=== PATIENT | male | born 1950 | race Caucasian/White ===

== ENCOUNTER 2022-02-04 10:41 | Inpatient (IN) ==
--- NOTE | 2022-02-04 11:16 | Emergency Department Note ---
Impression & Plan Suicidal ideation ED Provider Note NAME: LATOYA MENDOZA AGE: 71 SEX: M : 1950 ARRIVES VIA: Walk-In INFORMANT: [Patient][sister] ED PROVIDER(S): [Jules Marshall MD] CHIEF COMPLAINT: Mental health evaluation HISTORY OF PRESENT ILLNESS: The patient is a 71-year-old male who presents to the ED with suicidal thoughts. The patient does have some depression and anxiety. He has a learning disability. He is currently living with his granddaughter. The patient's [facility] er received a call today. He was upset and talking about ending his life. He talked about packing his bags and going into the le. He seemed to suicidal. This was a fairly sudden change as he has not demonstrated this type of behavior previously. He seemed fine the last few days. The patient states that he is not sure why he feels suicidal. He said that he thought about packing his bags and walking in the le, he thought about taking pills. As per the sister, the patient does not have any access to guns. The patient has never been hospitalized on the psychiatric services. Patient in the last several months has had some medication changes. Changes were made because of tremor. Really, the medication changes have not helped the tremor. The patient sister states that there has been weight loss over the last several months. She thinks he may be upset about another sister who is having some health issues and has been in and out of the hospital recently. REVIEW OF SYSTEMS: See HPI for pertinent positives and negatives. A total of ten systems were reviewed and were otherwise negative. PMHx/PSHx: See Below SOCIAL HISTORY: See Below. PHYSICAL EXAM: GENERAL: Patient is in no acute distress. HEENT: No acute trauma, normocephalic atraumatic, mucous membranes moist, no nasal congestion, no scleral icterus. NECK: No stridor, no adenopathy, no meningismus, trachea is midline. LUNGS: Clear to auscultation bilaterally, no wheeze, no rhonchi, breath sounds e qual. HEART: Without murmurs gallops or rubs, regular rate and rhythm. ABDOMEN: Soft, nontender, bowel sounds positive, no hernias, no peritonitis. EXTREMITIES: No cyanosis or edema, full range of motion of all the joints without pain or difficulty, no signs for acute trauma. NEUROLOGIC: Oriented x 3, no acute motor or sensory deficits, no focal weakness. SKIN: No rash, no jaundice, no diaphoresis. Psychiatric: Cooperative, flattened affect. Admits to suicidal ideation. Voluntary. DIFFERENTIAL DIAGNOSIS: Mood disorder, infection, hypoglycemia, electrolyte abnormalities, cardiac sources, intracerebral event, depression, anxiety, suicidal ideation, toxicologic etiology, trauma, neurologic event, as well as other pathologies. EMERGENCY DEPARTMENT COURSE/PROCEDURES: MEDICAL DECISION MAKING: There is no leukocytosis or concerning anemia. There is a normal platelet count. No significant electrolyte abnormality or kidney failure. No concerning liver enzyme elevation. The patient appeared to be in a euthyroid state. Urinalysis did not show infection. Aspirin, Tylenol and alcohol levels were undetectable. Urine tox showed potential barbiturates. Covid testing returned negative. On exam, the patient had a flattened affect, he was voluntary, he admitted to some suicidal ideation and a plan to potentially take pills. The patient was felt medically clear. He was seen by psychiatry case management. The patient has been admitted voluntarily to our psychiatric service, 3 S. Patient has been cooperative during his ED stay, no emergent medications were required. Past Med/Surg History Medical History Hyperlipidemia Hypertension Thyroid dysfunction Social History Smoking Status: Never smoker Preferred Language: Uzbek Communication Ability: Effective Communication Ability Comment: can sign and read his name Tare Man Required: No Beliefs That Will Affect Care: None Feels Safe at Home: Yes Assistive Devices: Denture - Upper, Denture - Lower and Glasses Allergies Allergies Allergy/AdvReac Type Severity Reaction Status Date / Time No Known Allergies Allergy Unverified 01/13/22 13:26 Home Meds Home Medications Medication Instructions Recorded Confirmed amlodipine 5 mg tablet 5 mg PO DAILY 01/13/22 02/04/22 aspirin 81 mg tablet,delayed 81 mg PO DAILY 01/13/22 02/04/22 release atenolol 50 mg tablet 50 mg PO BID 01/13/22 02/04/22 buspirone 5 mg tablet 5 mg PO BID 01/13/22 02/04/22 gabapentin 600 mg tablet 600 mg PO QID 01/13/22 02/04/22 levothyroxine 137 mcg tablet 137 mcg PO DAILYBB 01/13/22 02/04/22 lisinopril 30 mg tablet 30 mg PO DAILY 01/13/22 02/04/22 primidone 50 mg tablet 100 mg PO BID 01/13/22 02/04/22 simvastatin 20 mg tablet 20 mg PO HS 01/13/22 02/04/22 Results & Data (ED) Vital Signs Vital Signs - 24 hr 02/04/22 10:47 Temperature 36.5 C Temperature Source Temporal Artery Scan Pulse Rate 63 Pulse Rhythm Regular Pulse Strength Normal Respiratory Rate 18 Respiratory Effort / Characteristics Non-Labored Spontaneous Respiratory Depth Normal Blood Pressure 176/91 H Blood Pressure Mean 119 Blood Pressure Position Sitting Pulse Oximetry 98 Oxygen Delivery Method Room Air Sepsis Recent Fever Within 48 Hours No Sepsis New/Unexplained Change in Mental Status N/A Sepsis Action Taken by Nursing No Action Required Home Medications Current Medication List: was personally reviewed by me Laboratory Data Attestation: I reviewed the patient's lab results. Result diagrams: 02/04/22 11:35 02/04/22 11:35 Lab Results 02/04/22 02/04/22 02/04/22 Range/Units 11:30 11:30 11:30 WBC (4.8-10.8) K/uL RBC (4.7-6.1) M/uL Hgb (14.0-18.0) g/dL Hct (42-52) % MCV (80-100) fL MCH (25-34) pg MCHC (32-36) g/dL RDW Std Deviation (36.4-46.3) fL RDW Coeff of Anthony (11.5-14.5) % Plt Count (130-400) K/uL MPV (7.4-10.4) fL Immature Gran % (Auto) % Neut % (Auto) % Lymph % (Auto) % [place] % (Auto) % Eos % (Auto) % Baso % (Auto) % Neut # (Auto) (1.4-6.5) K/uL Lymph # (Auto) (1.2-3.4) K/uL [place] # (Auto) (0.11-0.59) K/uL Eos # (Auto) (0-0.5) K/uL Baso # (Auto) (0-0.2) K/uL Immature Gran # (Auto) (0.00-0.02) K/uL Sodium (136-145) mmol/L Potassium (3.5-5.1) mmol/L Chloride (98-107) mmol/L Carbon Dioxide (21-32) mmol/L Anion Gap (3-11) BUN (6-23) mg/dl Creatinine (0.6-1.4) mg/dl Est Cr Clr Drug Dosing ml/min Est GFR ( Amer) ml/min Est GFR (Non-Af Amer) ml/min BUN/Creatinine Ratio (10-20) Glucose (70-99(Fasting)) mg/dl Calcium (8.5-10.1) mg/dl Total Bilirubin (0.2-1.0) mg/dl AST (13-39) U/L ALT (7-52) U/L Alkaline Phosphatase (34-104) U/L Total Protein (6.0-8.3) gm/dl Albumin (3.4-5.0) gm/dl Globulin (2.5-4.0) gm/dl Albumin/Globulin Ratio (0.9-2) TSH (0.300-4.500) uIu/ml Urine Color Yellow Urine Appearance Clear (Clear) Urine pH 5.0 (4.5-7.5) Ur Specific [place] 1.017 (1.000-1.030) Urine Protein Negative (Negative) Urine Glucose (UA) Negative (Negative) Urine Ketones Negative (Negative) Urine Blood Trace H (Negative) Urine Nitrite Negative (Negative) Urine Bilirubin Negative (Negative) Urine Urobilinogen Negative (Negative) Ur Leukocyte Esterase Negative (Negative) Urine WBC (Auto) 0 (0-5) /hpf Urine RBC (Auto) 0-4 (0-4) /hpf U Hyaline Cast (Auto) 0 (0-5) /lpf U Epithel Cells (Auto) 0-5 (0-5) /lpf Urine Bacteria (Auto) Negative (Negative) Salicylates (3.0-30) mg/dl Urine Opiates Screen Neg (Neg) Ur Methadone, Qual Neg (Neg) Acetaminophen (10-30) ug/ml Urine Barbiturates Pos H (Neg) Ur Phencyclidine (PCP) Neg (Neg) U Amphetamin/Meth Scrn Neg (Neg) MDMA (Ecstasy) Screen Neg (Neg) U Benzodiazepines Scrn Neg (Neg) Ur Cocaine Metabolite Neg (Neg) U Marijuana (THC) Screen Neg (Neg) Ethyl Alcohol mg/dL (<10.0) mg/dl SARS-CoV-2, RNA, NAAT NEGATIVE (NEGATIVE) 02/04/22 02/04/22 02/04/22 Range/Units 11:35 11:35 11:35 WBC 6.44 (4.8-10.8) K/uL RBC 4.69 L (4.7-6.1) M/uL Hgb 16.2 (14.0-18.0) g/dL Hct 45.5 (42-52) % MCV 97.0 (80-100) fL MCH 34.5 H (25-34) pg MCHC 35.6 (32-36) g/dL RDW Std Deviation 48.4 H (36.4-46.3) fL RDW Coeff of Anthony 13.6 (11.5-14.5) % Plt Count 196 (130-400) K/uL MPV 10.8 H (7.4-10.4) fL Immature Gran % (Auto) 0.2 % Neut % (Auto) 65.5 % Lymph % (Auto) 23.3 % [place] % (Auto) 8.5 % Eos % (Auto) 2.0 % Baso % (Auto) 0.5 % Neut # (Auto) 4.22 (1.4-6.5) K/uL Lymph # (Auto) 1.50 (1.2-3.4) K/uL [place] # (Auto) 0.55 (0.11-0.59) K/uL Eos # (Auto) 0.13 (0-0.5) K/uL Baso # (Auto) 0.03 (0-0.2) K/uL Immature Gran # (Auto) 0.01 (0.00-0.02) K/uL Sodium 138 (136-145) mmol/L Potassium 4.1 (3.5-5.1) mmol/L Chloride 104 (98-107) mmol/L Carbon Dioxide 28 (21-32) mmol/L Anion Gap 6 (3-11) BUN 24 H (6-23) mg/dl Creatinine 1.12 (0.6-1.4) mg/dl Est Cr Clr Drug Dosing 73.8 ml/min Est GFR ( Amer) 76.7 ml/min Est GFR (Non-Af Amer) 66.2 ml/min BUN/Creatinine Ratio 21.4 H (10-20) Glucose 90 (70-99(Fasting)) mg/dl Calcium 9.2 (8.5-10.1) mg/dl Total Bilirubin 0.7 (0.2-1.0) mg/dl AST 19 (13-39) U/L ALT 16 (7-52) U/L Alkaline Phosphatase 48 (34-104) U/L Total Protein 6.5 (6.0-8.3) gm/dl Albumin 4.1 (3.4-5.0) gm/dl Globulin 2.4 L (2.5-4.0) gm/dl Albumin/Globulin Ratio 1.7 (0.9-2) TSH 1.366 (0.300-4.500) uIu/ml Urine Color Urine Appearance (Clear) Urine pH (4.5-7.5) Ur Specific [place] (1.000-1.030) Urine Protein (Negative) Urine Glucose (UA) (Negative) Urine Ketones (Negative) Urine Blood (Negative) Urine Nitrite (Negative) Urine Bilirubin (Negative) Urine Urobilinogen (Negative) Ur Leukocyte Esterase (Negative) Urine WBC (Auto) (0-5) /hpf Urine RBC (Auto) (0-4) /hpf U Hyaline Cast (Auto) (0-5) /lpf U Epithel Cells (Auto) (0-5) /lpf Urine Bacteria (Auto) (Negative) Salicylates (3.0-30) mg/dl Urine Opiates Screen (Neg) Ur Methadone, Qual (Neg) Acetaminophen (10-30) ug/ml Urine Barbiturates (Neg) Ur Phencyclidine (PCP) (Neg) U Amphetamin/Meth Scrn (Neg) MDMA (Ecstasy) Screen (Neg) U Benzodiazepines Scrn (Neg) Ur Cocaine Metabolite (Neg) U Marijuana (THC) Screen (Neg) Ethyl Alcohol mg/dL (<10.0) mg/dl SARS-CoV-2, RNA, NAAT (NEGATIVE) 02/04/22 02/04/22 Range/Units 11:35 11:35 WBC (4.8-10.8) K/uL RBC (4.7-6.1) M/uL Hgb (14.0-18.0) g/dL Hct (42-52) % MCV (80-100) fL MCH (25-34) pg MCHC (32-36) g/dL RDW Std Deviation (36.4-46.3) fL RDW Coeff of Anthony (11.5-14.5) % Plt Count (130-400) K/uL MPV (7.4-10.4) fL Immature Gran % (Auto) % Neut % (Auto) % Lymph % (Auto) % [place] % (Auto) % Eos % (Auto) % Baso % (Auto) % Neut # (Auto) (1.4-6.5) K/uL Lymph # (Auto) (1.2-3.4) K/uL [place] # (Auto) (0.11-0.59) K/uL Eos # (Auto) (0-0.5) K/uL Baso # (Auto) (0-0.2) K/uL Immature Gran # (Auto) (0.00-0.02) K/uL Sodium (136-145) mmol/L Potassium (3.5-5.1) mmol/L Chloride (98-107) mmol/L Carbon Dioxide (21-32) mmol/L Anion Gap (3-11) BUN (6-23) mg/dl Creatinine (0.6-1.4) mg/dl Est Cr Clr Drug Dosing ml/min Est GFR ( Amer) ml/min Est GFR (Non-Af Amer) ml/min BUN/Creatinine Ratio (10-20) Glucose (70-99(Fasting)) mg/dl Calcium (8.5-10.1) mg/dl Total Bilirubin (0.2-1.0) mg/dl AST (13-39) U/L ALT (7-52) U/L Alkaline Phosphatase (34-104) U/L Total Protein (6.0-8.3) gm/dl Albumin (3.4-5.0) gm/dl Globulin (2.5-4.0) gm/dl Albumin/Globulin Ratio (0.9-2) TSH (0.300-4.500) uIu/ml Urine Color Urine Appearance (Clear) Urine pH (4.5-7.5) Ur Specific [place] (1.000-1.030) Urine Protein (Negative) Urine Glucose (UA) (Negative) Urine Ketones (Negative) Urine Blood (Negative) Urine Nitrite (Negative) Urine Bilirubin (Negative) Urine Urobilinogen (Negative) Ur Leukocyte Esterase (Negative) Urine WBC (Auto) (0-5) /hpf Urine RBC (Auto) (0-4) /hpf U Hyaline Cast (Auto) (0-5) /lpf U Epithel Cells (Auto) (0-5) /lpf Urine Bacteria (Auto) (Negative) Salicylates < 3.0 L (3.0-30) mg/dl Urine Opiates Screen (Neg) Ur Methadone, Qual (Neg) Acetaminophen < 3 L (10-30) ug/ml Urine Barbiturates (Neg) Ur Phencyclidine (PCP) (Neg) U Amphetamin/Meth Scrn (Neg) MDMA (Ecstasy) Screen (Neg) U Benzodiazepines Scrn (Neg) Ur Cocaine Metabolite (Neg) U Marijuana (THC) Screen (Neg) Ethyl Alcohol mg/dL < 10.0 (<10.0) mg/dl SARS-CoV-2, RNA, NAAT (NEGATIVE) Administered Medications Atenolol (Atenolol 50 Mg Tablet) 50 mg PO [id number] [facility] Stop: 03/06/22 17:59 Last Admin: 02/04/22 18:16 Dose: 50 mg Documented by: [id number] Buspirone HCl (Buspirone 5 Mg Tab) 5 mg PO [id number] [facility] Stop: 03/06/22 17:59 Last Admin: 02/04/22 18:16 Dose: 5 mg Documented by: [id number] Gabapentin (Gabapentin 600 Mg Tab) 600 mg PO QID [facility] Stop: 03/06/22 17:59 Last Admin: 02/04/22 18:16 Dose: 600 mg Documented by: [id number] Discharge Plan Visit Data Chief Complaint: Mental Health Evaluation Stated Complaint: MHID, SUICIDAL THOUGHTS ED Provider: Jules Marshall Discharge Problem: Suicidal ideation Patient Disposition: Admitted As Inpatient Condition: Good Discharge Instructions Interventions: ED Discharge Assessment Last Done: 02/04/22 17:00
[2022-02-04 11:47] LABS: Basophils # (auto) 0.03 K/uL (0-0.2); Basophils % (auto) 0.5 %; Eosinophils # (auto) 0.13 K/uL (0-0.5); Hematocrit (blood only) 45.5 % (42-52); Hemoglobin 16.2 g/dL (14.0-18.0); Immature Granulocytes # (auto) 0.01 K/uL (0.00-0.02); Immature Granulocytes % (auto) 0.2 %; Lymphocytes % (auto) 23.3 %; Mean Corpuscular Hemoglobin 34.5 pg (25-34); Mean Corpuscular Hgb Conc 35.6 g/dL (32-36); Mean Platelet Volume 10.8 fL (7.4-10.4); Monocytes # (auto) 0.55 K/uL (0.11-0.59); Monocytes % (auto) 8.5 %; Neutrophils # (auto) 4.22 K/uL (1.4-6.5); Neutrophils % (auto) 65.5 %; Platelet Count 196 K/uL (130-400); RDW Coefficient of Variation 13.6 % (11.5-14.5); RDW Standard Deviation 48.4 fL (36.4-46.3); Red Blood Count 4.69 M/uL (4.7-6.1); White Blood Count 6.44 K/uL (4.8-10.8)
[2022-02-04 12:03] LABS: Appearance Urine Clear (Clear); Bacteria Urine Automated Negative (Negative); Bilirubin Urine Negative (Negative); Blood Urine Trace (Negative); Cast Urine Automated 0 /lpf (0-5); Color Urine Yellow; Epithelial Cell Urine Auto 0-5 /lpf (0-5); Glucose Urine UA Negative (Negative); Ketones Urine Negative (Negative); Leukocyte Esterase Urine Negative (Negative); Nitrite Urine Negative (Negative); Protein Urine Negative (Negative); RBC Urine Automated 0-4 /hpf (0-4); Specific Gravity Urine 1.017 (1.000-1.030); Urobilinogen Urine Negative (Negative); WBC Urine Automated 0 /hpf (0-5)
[2022-02-04 12:13] LABS: Albumin Globulin Ratio 1.7 (0.9-2); Albumin Level 4.1 gm/dl (3.4-5.0); BUN Creatinine Ratio 21.4 (10-20); Bilirubin,Total 0.7 mg/dl (0.2-1.0); Calcium 9.2 mg/dl (8.5-10.1); Creatinine Clr Calc Pharmacy 73.8 ml/min; Est GFR (African American) 76.7 ml/min; Est GFR (Non-African American) 66.2 ml/min; Globulin 2.4 gm/dl (2.5-4.0); Potassium 4.1 mmol/L (3.5-5.1); Total Protein 6.5 gm/dl (6.0-8.3)
[2022-02-04 12:31] LABS: Amphetamines+Metham, Urine Neg (Neg); Barbiturates, Urine Pos (Neg); Benzodiazepine, Urine Neg (Neg); Cocaine, Urine Neg (Neg); MDMA (Ecstacy), Urine Neg (Neg); Methadone, Urine Neg (Neg); Opiate, Urine Neg (Neg); Phencyclidine, Urine Neg (Neg)
[2022-02-04 13:46] LABS: Acetaminophen < 3 ug/ml (10-30); Salicylate < 3.0 mg/dl (3.0-30)
[2022-02-04] MEDS ORDERED: MAGNESIUM HYDROXIDE SUSP 30 ML UDC PO PRN (16:31)
[2022-02-04] MEDS ORDERED: hydrOXYzine HCl 25 MG TAB PO PRN ×2 (16:31)
[2022-02-04] MEDS ORDERED: SODIUM CHLORIDE 0.65% NA SOLN 45 ML (OCEAN) PRN (16:31)
[2022-02-04] MEDS ORDERED: ACETAMINOPHEN 325 MG TAB PO PRN (16:31)
[2022-02-04] MEDS ORDERED: BISMUTH SUBSALICYLATE LIQD 236 ML PO PRN (16:31)
[2022-02-04] MEDS ORDERED: ALUMINUM/MAGNESIUM SUSP 30 ML UDC PO PRN (16:31)
[2022-02-04] MEDS: GABAPENTIN 600 MG TAB PO SCH ×2 (18:16→21:56)
[2022-02-04] MEDS: busPIRone 5 MG TAB PO SCH (18:16)
[2022-02-04] MEDS: ATENOLOL 50 MG TABLET PO SCH (18:16)
[2022-02-04] MEDS ORDERED: SIMVASTATIN 20 MG TAB PO SCH (21:00)
[2022-02-04] MEDS: PRIMIDONE 50 MG TAB PO SCH (21:57)
[2022-02-04] MEDS ORDERED: amLODIPine BESYLATE 5 MG TAB PO SCH (22:00)
[2022-02-05] MEDS ORDERED: PNEUMOCOCCAL POLYSACCHARIDES 25 MCG/0.5 ML VIAL/SYR IM ONE (05:30)
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
[2022-02-05] MEDS ORDERED: LEVOTHYROXINE SODIUM 137 MCG TABLET PO SCH (08:00)
[2022-02-05] MEDS ORDERED: lisinopril 10 MG TAB PO SCH (09:00)
[2022-02-05] MEDS: GABAPENTIN 600 MG TAB PO SCH ×4 (09:00→21:02)
[2022-02-05] MEDS: busPIRone 5 MG TAB PO SCH ×2 (09:00→21:01)
[2022-02-05] MEDS: ATENOLOL 50 MG TABLET PO SCH ×2 (09:00→21:01)
[2022-02-05] MEDS: PRIMIDONE 50 MG TAB PO SCH ×2 (09:01→21:02)
[2022-02-05] MEDS: MIRTAZAPINE TAB 15 MG TAB PO SCH (21:03)
[2022-02-05] MEDS: SIMVASTATIN 20 MG TAB PO SCH (21:04)
[2022-02-06] MEDS: LEVOTHYROXINE SODIUM 137 MCG TABLET PO SCH (07:34)
[2022-02-06] MEDS: lisinopril 10 MG TAB PO SCH (08:54)
[2022-02-06] MEDS: busPIRone 5 MG TAB PO SCH ×2 (08:54→21:13)
[2022-02-06] MEDS: ATENOLOL 50 MG TABLET PO SCH ×2 (08:56→21:19)
[2022-02-06] MEDS: ASPIRIN 81 MG ECTAB PO SCH (08:56)
[2022-02-06] MEDS: amLODIPine BESYLATE 5 MG TAB PO SCH (08:56)
[2022-02-06] MEDS: PRIMIDONE 50 MG TAB PO SCH ×2 (08:57→21:13)
[2022-02-06] MEDS: GABAPENTIN 600 MG TAB PO SCH ×4 (08:57→21:13)
[2022-02-06] MEDS ORDERED: amLODIPine BESYLATE 5 MG TAB PO SCH (09:00)
--- NOTE | 2022-02-06 09:05 | Psychiatric Progress Note ---
Date of Service February 06, 2022 Impression / Recommendations Impression 71 year old with a history of intellectual and developmental disability, anxiety, depression and hypothyroidism who was admitted for worsening depression and SI with plan to overdose. Diagnostically consistent with MDD and KAMLESH with panic attacks. The patient is deemed unstable and requires psychiatric hospitalization for diagnostic clarification, safety and stabilization, medication management and development of further coping skills. MNPR due to intellectual disability with poor boundaries with peers. 02/06/22: Some improvement in mood today in context of therapeutic milieu engagement. Some dizziness from mirtazapine so will continue to monitor closely, will continue at current dose for now. Still hypertensive this morning even with increase in amlodipine, will continue to monitor. Family updated by social work. (1) Suicidal ideation: (2) MDD (major depressive disorder), recurrent episode, moderate: (3) Generalized anxiety disorder with panic attacks: (4) Intellectual disability: (5) Developmental disability: (6) Thyroid dysfunction: (7) Hypertension: 02/06/22: Continue mirtazapine and other prior to admission medications. 02/05/22: The patient was admitted to the [facility] ([facility] mental health unit) on q15 min checks (behavioral with suicide precautions) for safety. The patient will participate in group, recreational, and milieu therapies and will be offered additional individual and family sessions as clinically appropriate. -start mirtazapine 7.5mg qhs -will increase amlodipine to 10mg hs given ongoing HTN -collaborate with family Inventory Assets Strengths: supportive family, motivated to feel better, caring Needs: additional coping skills, safety plan, medication adjustments Risk Factors Assessment Male: Yes : Yes Do You Have Access To A Gun?: No Health Problems: Yes Mental Health Diagnoses: Yes Substance Use Disorders: No Previous Attempt: No Family History of Suicide: No Previous Psychiatric Hospitalization: No Hopelessness: Yes Smoker: No Protective Factors Assessment Employed: No Stable Relationships: Yes Supportive Family: Yes Interval History Identifying Information LATOYA MENDOZA is a 71-year-old man who currently lives with his niece near [place], has a history of developmental and intellectual disability, depression, and anxiety and was admitted on 02/04/22 16:31 on a 201 voluntary commitment for worsening depression and SI with plan of overdosing in the le. Chief Complaint "I'm good". Review of Systems Sleep Information Total Hours of Sleep: 7.25 Meal Information Percent Meal Consumed - Breakfast: 100 Percent Meal Consumed - Lunch: 100 Percent Meal Consumed - Dinner: 100 Subjective Subjective Patient was seen & assessed and interval progress reviewed with treatment team nursing and social work. Attended groups yesterday and talkative/tangential but appropriate. Attended to hygiene. Slept well last night. Today reports some improvement in his mood which he attributes to talking with people, talking on the phone with his niece "Pattie called which makes me happy" and doing word pu zzles. He feels the mirtazapine helped him with sleep, he felt slightly dizzy on awakening and we reviewed importance of going from lying to sitting for about 1 minute before standing. Denies any falls/feelings of syncope. He would like to continue the medication. Expresses gratitude for care he is receiving. Physical Exam Psychiatric Orientation: alert and oriented x 3 Apperance: appropriately dressed and appropriately groomed Eye Contact: good eye contact Motor Behavior: + tremor (resting tremor) Speech: normal rate/rhythm/volume of speech Affect: + constricted affect Mood: + depressed mood Thought Process: goal directed thought process and + concrete thought process Thought Content: reality based without delusions Suicidal Thoughts: denies suicidal thoughts Homicidal Thoughts: denies homicidal thoughts Hallucinations: no auditory hallucinations and no visual hallucinations Cognition: recent memory grossly intact, remote memory grossly intact, attention grossly intact and language grossly intact Estimated Intelligence: + below average estimated intelligence Insight: + limited insight Judgement: + limited judgement Vital Signs (Past 24 Hours) Last Vital Signs Temp 36.5 C 02/06/22 06:00 Pulse 60 02/06/22 08:50 Resp 18 02/06/22 06:00 BP 171/94 H 02/06/22 06:55 Pulse Ox 98 02/04/22 17:19 Results & Data ([facility]) Current Inpatient Medications Current Inpatient Medications: Current Inpatient Medications Acetaminophen (Acetaminophen 325 Mg Tab) 650 mg PO Q4H PRN PRN Reason: Headache or Minor Fever Stop: 03/06/22 16:30 Al Hydrox/Mg Hydrox/Simethicone (Aluminum/Magnesium Susp 30 Ml Udc) 30 ml PO Q4H PRN PRN Reason: GI Upset Stop: 03/06/22 16:30 Amlodipine Besylate (Amlodipine Besylate 5 Mg Tab) 10 mg PO DAILY ESMER Stop: 03/08/22 08:59 Last Admin: 02/06/22 08:56 Dose: 10 mg Documented by: Aspirin (Aspirin 81 Mg Ectab) 81 mg PO DAILY ESMER Stop: 03/08/22 08:59 Last Admin: 02/06/22 08:56 Dose: 81 mg Documented by: Atenolol (Atenolol 50 Mg Tablet) 50 mg PO BID ESMER Stop: 03/07/22 20:59 Last Admin: 02/06/22 08:56 Dose: 50 mg Documented by: Bismuth Subsalicylate (Bismuth Subsalicylate Liqd 236 Ml) 15 ml PO PRN PRN PRN Reason: Loose Stool Stop: 03/06/22 16:30 Buspirone HCl (Buspirone 5 Mg Tab) 5 mg PO BID ESMER Stop: 03/07/22 20:59 Last Admin: 02/06/22 08:54 Dose: 5 mg Documented by: Gabapentin (Gabapentin 600 Mg Tab) 600 mg PO QID [facility] Stop: 03/07/22 16:59 Last Admin: 02/06/22 08:57 Dose: 600 mg Documented by: Hydroxyzine HCl (Hydroxyzine Hcl 25 Mg Tab) 50 mg PO HSZ PRN PRN Reason: Insomnia Stop: 03/06/22 16:30 Hydroxyzine HCl (Hydroxyzine Hcl 25 Mg Tab) 25 mg PO Q4H PRN PRN Reason: Anxiety Stop: 03/06/22 16:30 Levothyroxine Sodium (Levothyroxine Sodium 137 Mcg Tablet) 137 mcg PO DAILYBB ESMER Stop: 03/08/22 07:59 Last Admin: 02/06/22 07:34 Dose: 137 mcg Documented by: Lisinopril (Lisinopril 10 Mg Tab) 30 mg PO DAILY ESMER Stop: 03/08/22 08:59 Last Admin: 02/06/22 08:54 Dose: 30 mg Documented by: Magnesium Hydroxide (Magnesium Hydroxide Susp 30 Ml Udc) 30 ml PO DAILY PRN PRN Reason: Constipation Stop: 03/06/22 16:30 Mirtazapine (Mirtazapine Tab 15 Mg Tab) 7.5 mg PO HS ESMER Stop: 03/07/22 21:59 Last Admin: 02/05/22 21:03 Dose: 7.5 mg Documented by: Primidone (Primidone 50 Mg Tab) 100 mg PO BID ESMER Stop: 03/07/22 20:59 Last Admin: 02/06/22 08:57 Dose: 100 mg Documented by: Simvastatin (Simvastatin 20 Mg Tab) 20 mg PO HS ESMER Stop: 03/07/22 21:59 Last Admin: 02/05/22 21:04 Dose: 20 mg Documented by: Sodium Chloride (Sodium Chloride 0.65% Na Soln 45 Ml ([place])) 1 - 2 sprays NA PRN PRN PRN Reason: Nasal Dryness/Congestion Stop: 03/06/22 16:30 Post Discharge Appointments Primary Care Physician Name Of Family Doctor: Dr. Jose Wellington
[2022-02-06 15:32] LABS: Amobarbital, Urine Conf NEGATIVE ng/mL (<100); Butalbital, Urine NEGATIVE ng/mL (<100); Pentobarbital, Urine Conf NEGATIVE ng/mL (<100); Phenobarbital, Urine 3220 ng/mL (<100); Secobarbital, Urine Conf NEGATIVE ng/mL (<100)
[2022-02-06] MEDS: SIMVASTATIN 20 MG TAB PO SCH (21:10)
[2022-02-06] MEDS: MIRTAZAPINE TAB 15 MG TAB PO SCH (21:10)
[2022-02-07] MEDS: LEVOTHYROXINE SODIUM 137 MCG TABLET PO SCH (07:17)
--- NOTE | 2022-02-07 09:09 | Psychiatric Progress Note ---
Date of Service February 07, 2022 Impression / Recommendations Impression 71 year old with a history of intellectual and developmental disability, anxiety, depression and hypothyroidism who was admitted for worsening depression and SI with plan to overdose. Diagnostically consistent with MDD and KAMLESH with panic attacks. The patient is deemed unstable and requires psychiatric hospitalization for diagnostic clarification, safety and stabilization, medication management and development of further coping skills. MNPR due to intellectual disability with poor boundaries with peers. 02/07/22: Steady improvement with ongoing mood improvement and no SI in context of therapeutic milieu engagement. Ongoing dizziness from mirtazapine including into mid-morning even with low dose mirtazapine so will discontinue given improvement in mood with coping skills/milieu and risk of falls with dizziness especially with his older age which he consents to. Consideration for SSRI but he prefers to avoid any additional medications. Hypertension improving since amlodipine increase. (1) Suicidal ideation: (2) MDD (major depressive disorder), recurrent episode, moderate: (3) Generalized anxiety disorder with panic attacks: (4) Intellectual disability: (5) Developmental disability: (6) Thyroid dysfunction: (7) Hypertension: 02/07/22: Discontinue mirtazapine given ongoing dizziness and risk this could lead to future falls. Continue prior to admission medications. Needs family meeting. Reviewed coping skills. 02/06/22: Continue mirtazapine and other prior to admission medications. 02/05/22: The patient was admitted to the [facility] ([facility] mental health unit) on q15 min checks (behavioral with suicide precautions) for safety. The patient will participate in group, recreational, and milieu therapies and will be offered additional individual and family sessions as clinically appropriate. -start mirtazapine 7.5mg qhs -will increase amlodipine to 10mg hs given ongoing HTN -collaborate with family Inventory Assets Strengths: supportive family, motivated to feel better, caring Needs: additional coping skills, safety plan, medication adjustments Risk Factors Assessment Male: Yes : Yes Do You Have Access To A Gun?: No Health Problems: Yes Mental Health Diagnoses: Yes Substance Use Disorders: No Previous Attempt: No Family History of Suicide: No Previous Psychiatric Hospitalization: No Hopelessness: Yes Smoker: No Protective Factors Assessment Employed: No Stable Relationships: Yes Supportive Family: Yes Interval History Identifying Information LATOYA MENDOZA is a 71-year-old man who currently lives with his niece near [facility], has a history of developmental and intellectual disability, depression, and anxiety and was admitted on 02/04/22 16:31 on a 201 voluntary commitment for worsening depression and SI with plan of overdosing in the le. Chief Complaint "I'm feeling better today". Review of Systems Sleep Information Total Hours of Sleep: 8 Meal Information Percent Meal Consumed - Breakfast: 100 Percent Meal Consumed - Lunch: 100 Percent Meal Consumed - Dinner: 100 Subjective Subjective Patient was seen & assessed and interval progress reviewed with treatment team nursing and social work. He states his mood is improving and denies SI. Still some dizziness from the mirtazapine with changing positions and this morning felt dizzy on awakening on way to bathroom and had to grab onto the wall to steady himself. Reviewed potential risks of ongoing dizziness with low dose mirtazapine including risk of falls and Latoya would prefer to stop the medication. Discussed options for alternative medications for mood such as SSRIs but he would rather not start a new medication. He's feeling that he may be read y to return home soon. Reviewed goal of ensuring dizziness improves before outpatient level of care would be felt to be safe which he agrees with. Physical Exam Psychiatric Orientation: alert and oriented x 3 Apperance: appropriately dressed and appropriately groomed Eye Contact: good eye contact Motor Behavior: + tremor (resting tremor) Speech: normal rate/rhythm/volume of speech Affect: + constricted affect Mood: no depressed mood and no anxious mood Thought Process: goal directed thought process and + concrete thought process Thought Content: reality based without delusions Suicidal Thoughts: denies suicidal thoughts Homicidal Thoughts: denies homicidal thoughts Hallucinations: no auditory hallucinations and no visual hallucinations Cognition: recent memory grossly intact, remote memory grossly intact, attention grossly intact and language grossly intact Estimated Intelligence: + below average estimated intelligence Insight: + limited insight Judgement: + limited judgement Vital Signs (Past 24 Hours) Last Vital Signs Temp 36.5 C 02/07/22 06:00 Pulse 57 L 02/07/22 06:19 Resp 16 02/07/22 06:00 BP 151/76 H 02/07/22 06:19 Pulse Ox 98 02/04/22 17:19 Results & Data ([facility]) Laboratory Results Laboratory Results - last 24 hr 02/04/22 11:30 Urine Butalbital NEGATIVE Urine Amobarbital NEGATIVE Urine Pentobarbital NEGATIVE Urine Phenobarbital 3220 H Urine Secobarbital NEGATIVE Drug Screen Comment SEE NOTE Current Inpatient Medications Current Inpatient Medications: Current Inpatient Medications Acetaminophen (Acetaminophen 325 Mg Tab) 650 mg PO Q4H PRN PRN Reason: Headache or Minor Fever Stop: 03/06/22 16:30 Al Hydrox/Mg Hydrox/Simethicone (Aluminum/Magnesium Susp 30 Ml Udc) 30 ml PO Q4H PRN PRN Reason: GI Upset Stop: 03/06/22 16:30 Amlodipine Besylate (Amlodipine Besylate 5 Mg Tab) 10 mg PO DAILY ESMER Stop: 03/08/22 08:59 Last Admin: 02/06/22 08:56 Dose: 10 mg Documented by: Aspirin (Aspirin 81 Mg Ectab) 81 mg PO DAILY ESMER Stop: 03/08/22 08:59 Last Admin: 02/06/22 08:56 Dose: 81 mg Documented by: Atenolol (Atenolol 50 Mg Tablet) 50 mg PO BID ESMER Stop: 03/07/22 20:59 Last Admin: 02/06/22 21:19 Dose: Not Given Documented by: Bismuth Subsalicylate (Bismuth Subsalicylate Liqd 236 Ml) 15 ml PO PRN PRN PRN Reason: Loose Stool Stop: 03/06/22 16:30 Buspirone HCl (Buspirone 5 Mg Tab) 5 mg PO BID ESMER Stop: 03/07/22 20:59 Last Admin: 02/06/22 21:13 Dose: 5 mg Documented by: Gabapentin (Gabapentin 600 Mg Tab) 600 mg PO QID ESMER Stop: 03/07/22 16:59 Last Admin: 02/06/22 21:13 Dose: 600 mg Documented by: Hydroxyzine HCl (Hydroxyzine Hcl 25 Mg Tab) 50 mg PO HSZ PRN PRN Reason: Insomnia Stop: 03/06/22 16:30 Hydroxyzine HCl (Hydroxyzine Hcl 25 Mg Tab) 25 mg PO Q4H PRN PRN Reason: Anxiety Stop: 03/06/22 16:30 Levothyroxine Sodium (Levothyroxine Sodium 137 Mcg Tablet) 137 mcg PO DAILYBB ESMER Stop: 03/08/22 07:59 Last Admin: 02/07/22 07:17 Dose: 137 mcg Documented by: Lisinopril (Lisinopril 10 Mg Tab) 30 mg PO DAILY ESMER Stop: 03/08/22 08:59 Last Admin: 02/06/22 08:54 Dose: 30 mg Documented by: Magnesium Hydroxide (Magnesium Hydroxide Susp 30 Ml Udc) 30 ml PO DAILY PRN PRN Reason: Constipation Stop: 03/06/22 16:30 Mirtazapine (Mirtazapine Tab 15 Mg Tab) 7.5 mg PO HS ESMER Stop: 03/07/22 21:59 Last Admin: 02/06/22 21:10 Dose: 7.5 mg Documented by: Primidone (Primidone 50 Mg Tab) 100 mg PO BID ESMER Stop: 03/07/22 20:59 Last Admin: 02/06/22 21:13 Dose: 100 mg Documented by: Simvastatin (Simvastatin 20 Mg Tab) 20 mg PO HS ESMER Stop: 03/07/22 21:59 Last Admin: 02/06/22 21:10 Dose: 20 mg Documented by: Sodium Chloride (Sodium Chloride 0.65% Na Soln 45 Ml ([place])) 1 - 2 sprays NA PRN PRN PRN Reason: Nasal Dryness/Congestion Stop: 03/06/22 16:30 Mental Health & Subst Abuse Tx Psychiatrist Name of Psychiatrist: N/A Therapist Name of Therapist: N/A Post Discharge Appointments Primary Care Physician Name Of Family Doctor: Michele [facility] Date of Appointment with PCP: 02/20/22 Time of Appointment with PCP: 3pm Provider Appointment Comment: [place] [address] Contact Information Discharge /[phone] Discharge [address]: [address] [place] [address] MICHELLE Simons [address]
[2022-02-07] MEDS: amLODIPine BESYLATE 5 MG TAB PO SCH (09:49)
[2022-02-07] MEDS: busPIRone 5 MG TAB PO SCH ×2 (09:49→21:48)
[2022-02-07] MEDS: GABAPENTIN 600 MG TAB PO SCH ×4 (09:49→21:48)
[2022-02-07] MEDS: ASPIRIN 81 MG ECTAB PO SCH (09:49)
[2022-02-07] MEDS: ATENOLOL 50 MG TABLET PO SCH ×2 (09:49→21:48)
[2022-02-07] MEDS: lisinopril 10 MG TAB PO SCH (09:50)
[2022-02-07] MEDS: PRIMIDONE 50 MG TAB PO SCH ×2 (09:50→21:48)
[2022-02-07] MEDS: SIMVASTATIN 20 MG TAB PO SCH (21:48)
[2022-02-08] MEDS: LEVOTHYROXINE SODIUM 137 MCG TABLET PO SCH (07:28)
[2022-02-08] MEDS: busPIRone 5 MG TAB PO SCH (08:55)
[2022-02-08] MEDS: ASPIRIN 81 MG ECTAB PO SCH (08:55)
[2022-02-08] MEDS: amLODIPine BESYLATE 5 MG TAB PO SCH (08:56)
[2022-02-08] MEDS: lisinopril 10 MG TAB PO SCH (08:57)
[2022-02-08] MEDS: PRIMIDONE 50 MG TAB PO SCH (08:57)
[2022-02-08] MEDS: GABAPENTIN 600 MG TAB PO SCH ×2 (08:57→12:15)
[2022-02-08] MEDS: ATENOLOL 50 MG TABLET PO SCH (08:57)
--- NOTE | 2022-02-08 10:26 | Discharge Summary ---
Date of Service February 08, 2022 History of Present Illness As per Dr. Wilder on admission: Cory presents for admission for worsening depression and SI with plan of going into the le and overdosing on medication int he context of recent stressors including his sister having health issues/being hospitalized, thyroid medication adjustments and changes in routine. Cory typically lives with his sister, Jeni, but recently has been living with his niece as he helps out around the house but she has been visiting her boyfriend some weekends and he's alone in the home which causes him to feel more lonely and depressed. Cory has a developmental and intellectual disability with inability to read or write with multiple local family supports. Therefore some of the history is taken from ED providers discussion with his sister, Jeni, who brought him to the ED after fairly sudden onset of SI with plan yesterday. He has been experiencing depressive and anxiety symptoms over the last 3-4 months including decreased appetite with weight loss (~17 lbs in the last month), tearfulness, low energy, anhedonia, increased sleep but with multiple awakenings over night due to having to use the bathroom, low energy and SI. He also endorses anxiety with panic attacks, every few days. Sometimes when alone he thinks he hears people talking or thinks he sees something outside when he's lonely or nervous. Psychiatric ROS notable for no hx saman, no hx eating disorders, no hx OCD, no hx violence, no hx substance use, no hx self-harm. He is currently prescribed busprione 5mg BID and gabapentin 600mg QID. Recent Synthroid adjustments and other medication changes due to tremor. Physical Exam Psychiatric See admission H&P and DOD assessment. Vital Signs (Past 24 Hours) Last Vital Signs Temp 36.6 C 02/08/22 06:51 Pulse 65 02/08/22 06:52 Resp 18 02/08/22 06:51 BP 141/81 H 02/08/22 06:52 Pulse Ox 98 02/04/22 17:19 Principal Diagnosis major depressive disorder Psychiatric Data See daily stay summary. In short, safety was maintained and the patient was cooperative with care. Medication changes included a trial of Remeron but he was unable to tolerate due to dizziness. A family session was held and safety plan was completed prior to discharge. Note: His BP improved with increase in Norvasc. His family expressed concerns about ongoing use of primodine for tremor and defer dosing to outpatient provider. Day of Discharge Assessment Today the patient voices readiness for discharge. They note improvement in mood and deny thoughts to harm self or others. Thoughts remain organized and they are improved from admission. There is no evidence of psychosis. They agree to take mediations as prescribed and keep follow-up appointments. They are stable for discharge to outpatient level of care. Transition of Care Transition Of Care Record: was reviewed with the patient Advance Directives Advance Directives Information Provided: Yes Advance Directives: No Mental Health Advance Directive: No Advance Directives on File: No Living Will: No Power of Ironworker Apprentice: No Advance Directives Reason:: Declines as Mental Health Visit. Risk Factors Assessment Male: Yes : Yes Do You Have Access To A Gun?: No Health Problems: Yes Mental Health Diagnoses: Yes Substance Use Disorders: No Previous Attempt: No Family History of Suicide: No Previous Psychiatric Hospitalization: No Hopelessness: Yes Smoker: No Protective Factors Assessment Employed: No Stable Relationships: Yes Supportive Family: Yes Tobacco Cessation at Discharge Tobacco Cessation Medication Prescribed at Discharge: Not Applicable/Non-Smoker Total Time Total Time Spent: Greater Than 30 Minutes Total Time Includes: Examination of the patient, Discharge Planning and Medication Reconciliation Discharge Data Lab Results 02/04/22 02/04/22 02/04/22 11:30 11:30 11:30 WBC RBC Hgb Hct MCV MCH MCHC RDW Std Deviation RDW Coeff of Anthony Plt Count MPV Immature Gran % (Auto) Neut % (Auto) Lymph % (Auto) [place] % (Auto) Eos % (Auto) Baso % (Auto) Neut # (Auto) Lymph # (Auto) [place] # (Auto) Eos # (Auto) Baso # (Auto) Immature Gran # (Auto) Sodium Potassium Chloride Carbon Dioxide Anion Gap BUN Creatinine Est Cr Clr Drug Dosing Est GFR ( Amer) Est GFR (Non-Af Amer) BUN/Creatinine Ratio Glucose Calcium Total Bilirubin AST ALT Alkaline Phosphatase Total Protein Albumin Globulin Albumin/Globulin Ratio TSH Urine Color Yellow Urine Appearance Clear Urine pH 5.0 Ur Specific Novelty 1.017 Urine Protein Negative Urine Glucose (UA) Negative Urine Ketones Negative Urine Blood Trace H Urine Nitrite Negative Urine Bilirubin Negative Urine Urobilinogen Negative Ur Leukocyte Esterase Negative Urine WBC (Auto) 0 Urine RBC (Auto) 0-4 U Hyaline Cast (Auto) 0 U Epithel Cells (Auto) 0-5 Urine Bacteria (Auto) Negative Urine Butalbital Salicylates Urine Opiates Screen Neg Ur Methadone, Qual Neg Acetaminophen Urine Barbiturates Pos H Ur Phencyclidine (PCP) Neg U Amphetamin/Meth Scrn Neg MDMA (Ecstasy) Screen Neg Urine Amobarbital Urine Pentobarbital Urine Phenobarbital Urine Secobarbital U Benzodiazepines Scrn Neg Ur Cocaine Metabolite Neg U Marijuana (THC) Screen Neg Drug Screen Comment Ethyl Alcohol mg/dL SARS-CoV-2, RNA, NAAT NEGATIVE 02/04/22 02/04/22 02/04/22 11:30 11:35 11:35 WBC 6.44 RBC 4.69 L Hgb 16.2 Hct 45.5 MCV 97.0 MCH 34.5 H MCHC 35.6 RDW Std Deviation 48.4 H RDW Coeff of Anthony 13.6 Plt Count 196 MPV 10.8 H Immature Gran % (Auto) 0.2 Neut % (Auto) 65.5 Lymph % (Auto) 23.3 [place] % (Auto) 8.5 Eos % (Auto) 2.0 Baso % (Auto) 0.5 Neut # (Auto) 4.22 Lymph # (Auto) 1.50 [place] # (Auto) 0.55 Eos # (Auto) 0.13 Baso # (Auto) 0.03 Immature Gran # (Auto) 0.01 Sodium 138 Potassium 4.1 Chloride 104 Carbon Dioxide 28 Anion Gap 6 BUN 24 H Creatinine 1.12 Est Cr Clr Drug Dosing 73.8 Est GFR ( Amer) 76.7 Est GFR (Non-Af Amer) 66.2 BUN/Creatinine Ratio 21.4 H Glucose 90 Calcium 9.2 Total Bilirubin 0.7 AST 19 ALT 16 Alkaline Phosphatase 48 Total Protein 6.5 Albumin 4.1 Globulin 2.4 L Albumin/Globulin Ratio 1.7 TSH Urine Color Urine Appearance Urine pH Ur Specific Novelty Urine Protein Urine Glucose (UA) Urine Ketones Urine Blood Urine Nitrite Urine Bilirubin Urine Urobilinogen Ur Leukocyte Esterase Urine WBC (Auto) Urine RBC (Auto) U Hyaline Cast (Auto) U Epithel Cells (Auto) Urine Bacteria (Auto) Urine Butalbital NEGATIVE Salicylates Urine Opiates Screen Ur Methadone, Qual Acetaminophen Urine Barbiturates Ur Phencyclidine (PCP) U Amphetamin/Meth Scrn MDMA (Ecstasy) Screen Urine Amobarbital NEGATIVE Urine Pentobarbital NEGATIVE Urine Phenobarbital 3220 H Urine Secobarbital NEGATIVE U Benzodiazepines Scrn Ur Cocaine Metabolite U Marijuana (THC) Screen Drug Screen Comment SEE NOTE Ethyl Alcohol mg/dL SARS-CoV-2, RNA, NAAT 02/04/22 02/04/22 02/04/22 11:35 11:35 11:35 WBC RBC Hgb Hct MCV MCH MCHC RDW Std Deviation RDW Coeff of Anthony Plt Count MPV Immature Gran % (Auto) Neut % (Auto) Lymph % (Auto) [place] % (Auto) Eos % (Auto) Baso % (Auto) Neut # (Auto) Lymph # (Auto) [place] # (Auto) Eos # (Auto) Baso # (Auto) Immature Gran # (Auto) Sodium Potassium Chloride Carbon Dioxide Anion Gap BUN Creatinine Est Cr Clr Drug Dosing Est GFR ( Amer) Est GFR (Non-Af Amer) BUN/Creatinine Ratio Glucose Calcium Total Bilirubin AST ALT Alkaline Phosphatase Total Protein Albumin Globulin Albumin/Globulin Ratio TSH 1.366 Urine Color Urine Appearance Urine pH Ur Specific Novelty Urine Protein Urine Glucose (UA) Urine Ketones Urine Blood Urine Nitrite Urine Bilirubin Urine Urobilinogen Ur Leukocyte Esterase Urine WBC (Auto) Urine RBC (Auto) U Hyaline Cast (Auto) U Epithel Cells (Auto) Urine Bacteria (Auto) Urine Butalbital Salicylates < 3.0 L Urine Opiates Screen Ur Methadone, Qual Acetaminophen < 3 L Urine Barbiturates Ur Phencyclidine (PCP) U Amphetamin/Meth Scrn MDMA (Ecstasy) Screen Urine Amobarbital Urine Pentobarbital Urine Phenobarbital Urine Secobarbital U Benzodiazepines Scrn Ur Cocaine Metabolite U Marijuana (THC) Screen Drug Screen Comment Ethyl Alcohol mg/dL < 10.0 SARS-CoV-2, RNA, NAAT Hospital Course (1) Suicidal ideation: (2) MDD (major depressive disorder), recurrent episode, moderate: (3) Generalized anxiety disorder with panic attacks: (4) Intellectual disability: (5) Developmental disability: (6) Thyroid dysfunction: (7) Hypertension: 02/07/22: Discontinue mirtazapine given ongoing dizziness and risk this could lead to future falls. Continue prior to admission medications. Needs family meeting. Reviewed coping skills. 02/06/22: Continue mirtazapine and other prior to admission medications. 02/05/22: The patient was admitted to the [facility] (locked inpatient mental health unit) on q15 min checks (behavioral with suicide precautions) for safety. The patient will participate in group, recreational, and milieu therapies and will be offered additional individual and family sessions as clinically appropriate. -start mirtazapine 7.5mg qhs -will increase amlodipine to 10mg hs given ongoing HTN -collaborate with family Mental Health & Subst Abuse Tx Psychiatrist Name of Psychiatrist: N/A Therapist Name of Therapist: N/A Post Discharge Appointments Primary Care Physician Name Of Family Doctor: Michele Wellington Primary [facility] Date of Appointment with PCP: 02/20/22 Time of Appointment with PCP: 3pm Provider Appointment Comment: [place] [address] Smoking Cessation Counseling Tobacco Cessation Medication Prescribed at Discharge: Not Applicable/Non-Smoker Contact Information Discharge /[phone] Discharge [address]: [address] [place] [address] MICHELLE Simons [id number] Discharge Plan Discharge Items Patient Disposition: Home - Self-Care Reason For Visit: SUICIDAL IDEATION/MDD Discharge Diagnosis: major depressive disorder Condition on Discharge: Good Activity: Resume your previous activity Non-emergency contact: Primary Care Provider, Psychiatrist and Therapist Call non-emergency contact if: you have any medication questions and your symptoms worsen Follow-up/Referrals: Jose Mullen MD [Primary Care Provider] - Diet: Regular Addtl Attending Provider Instructions: SPECIAL CARE INSTRUCTIONS: 1. Follow through with your scheduled aftercare appointments. If unable to keep an appointment, please call to reschedule. 2. Take your medication only as prescribed. Medication should not be changed or stopped without the approval of your doctor. In the event of worsening symptoms or concerns about side effects, contact your doctor immediately. 3. Utilize new healthy coping skills, anger management skills, and stress management skills learned during your hospitalization. Journal feelings and process them with a support person. Identify stressors or situations that m ay result in relapse, deterioration or inappropriate behaviors and develop a plan to deal with those issues. 4. If your coping skills are ineffective and you are in crisis, contact your tpatie providers for direction. If unable to reach your providers, please call the [facility] CRISIS LINE AT , go to the [facility] walk-in center at [address], [address], [place], or go to the closest Emergency Room. 5. Avoid alcohol and un-prescribed drugs. 6. You have been provided with the Mental Health Advance Directives Pamphlet for your review. 7. Your condition is stable for discharge to outpatient level of care, but recovery is an ongoing process. Ifthoughts to harm yourself or others return, follow the safety plan developed during your stay. Planning for a safe return home includes securing weapons. Our treatment team recommends weaponsbe removed from the home until your outpatient provider reassesses your progress. In rare cases where the items themselvescannot be removed, guns and ammunitionshould be secured separatelyand keys stored by a reliable personoutside of the home. If you were admitted on an involuntary commitment, the police or other legal authorities may be involved in this process. AFTERCARE APPOINTMENTS: * Please call your insurance company prior to your scheduled appointment to confirm your aftercare providers are covered. Take your insurance information to your appointments. WHO TO CALL AND WHEN: Medical Emergencies: For questions or emergencies related to your hospital stay, please contact the Inpatient Behavioral Health Unit at [phone]. A finisher special stocks is on-call 08/06 for the Behavioral Health Unit for emergencies At any time you feel your situation is an emergency, you may also call 911 immediately. Pending Studies at Discharge: No Stand-Alone Forms: My [facility], Smoking Cessation Medications and DC Order Prescriptions: New amlodipine [Norvasc] 10 mg tablet 10 mg PO DAILY Qty: 30 RF: 0 Continued buspirone 5 mg tablet 5 mg PO BID RF: 0 primidone 50 mg tablet 100 mg PO BID RF: 0 levothyroxine 137 mcg tablet 137 mcg PO DAILYBB RF: 0 gabapentin 600 mg tablet 600 mg PO QID RF: 0 aspirin 81 mg Tablet,Delayed Release (Dr/Ec) 81 mg PO DAILY RF: 0 simvastatin 20 mg tablet 20 mg PO HS RF: 0 lisinopril 30 mg tablet 30 mg PO DAILY RF: 0 atenolol 50 mg tablet 50 mg PO BID RF: 0 Discontinued amlodipine 5 mg tablet 5 mg PO DAILY RF: 0 Discharge Orders: Discharge Order (Routine); Ordered 02/08/22 Ordered By: Jossy Ballard Admission Data Admit Date/Time: 02/04/22 16:31 Attending Provider: Jossy Ballard Admit Provider: Lilian Wilder Primary Care Provider: Jose Mullen Other Interventions: Discharge Summary Assessment (RN) Last Done: 02/08/22 11:52 PSY Interdisciplinary Discharge Planning Last Done: 02/08/22 11:52 Coding Level of Care Code 24422 D/C day mgmt > 30 min Diagnoses Suicidal ideation R45.851 MDD (major depressive disorder), recurrent episode, moderate F33.1 Generalized anxiety disorder with panic attacks F41.1; F41.0 Intellectual disability F79 Developmental disability F89 Thyroid dysfunction E07.9 Hypertension I10
== END 2022-02-08 13:15 | disposition home or self-care (01) | DRG 885 ==
LOC: ED 10:41 → 3S 16:31 → SUATTDRO 16:31 → 3S 17:00